=== PATIENT | male | born 1960 | race American Indian/Alaskan Native ===

== ENCOUNTER 2018-07-23 00:09 | Inpatient (IN) | payer BC ==
[2018-07-23] MEDS ORDERED: NORMODYNE IV ONE (03:20)
[2018-07-23] MEDS ORDERED: ASPIRIN PO ONE (03:20)
--- NOTE | 2018-07-23 04:03 | Emergency Department Report ---
ED Chest Pain HPI - General Chief Complaint: Chest Pain Time Seen by Provider: 07/23/18 02:53 Source: patient Mode of arrival: Ambulatory Limitations: No Limitations - History of Present Illness Initial Comments: 57-year-old male with no past medical history, has not seen a physician in a while, presents to ED with complaint of chest pain, onset last night while at rest. Patient states pain is sternal, throbbing, intermittent in nature. Reported associated diaphoresis. Denies any aggravating or alleviating factors. Denies shortness of breath, nausea, vomiting, leg pain or swelling. Patient reports tobacco use. Denies drug use. Currently chest pain free. MD Complaint: chest pain -: Last night Onset: during rest Pain Location: substernal Pain Radiation: none Severity: moderate Severity scale (0 -10): 8 Quality: other (throbbing) Consistency: intermittent Improves With: nothing Worsens With: nothing re: diaphoresis. denies: nausea, vomting, dyspnea Other Symptoms: denies: cough, fever, leg swelling - Related Data Home Medications Medication Instructions Recorded Confirmed Last Taken No Known Home Medications [No 07/23/18 07/23/18 Unknown Reported Home Medications] Allergies Allergy/AdvReac Type Severity Reaction Status Date / Time No Known Allergies Allergy Verified 07/23/18 05:59 Heart Score - HEART Score History: Moderately suspicious EKG: Non-specific Age: 45-65 Risk factors: 1-2 risk factors Troponin: > 3x normal limit HEART Score: 6 ED Review of Systems ROS: Stated complaint: Other details as noted in HPI Comment: All other systems reviewed and negative Constitutional: denies: chills, fever Respiratory: denies: cough, shortness of breath Cardiovascular: chest pain Gastrointestinal: denies: nausea, vomiting Musculoskeletal: other (denies leg pain/ swelling) ED Past Medical Hx - Past Medical History Previous Medical History?: No - Surgical History Past Surgical History?: No - Social History Smoking Status: Current Every Day Smoker Substance Use Type: Alcohol - Medications Home Medications: Home Medications Medication Instructions Recorded Confirmed Last Taken Type No Known Home Medications [No 07/23/18 07/23/18 Unknown History Reported Home Medications] ED Physical Exam - General Limitations: No Limitations General appearance: alert, in no apparent distress - Head Head exam: Present: atraumatic, normocephalic - Eye Eye exam: Present: normal appearance - ENT ENT exam: Present: mucous membranes moist - Neck Neck exam: Present: normal inspection - Respiratory Respiratory exam: Present: normal lung sounds bilaterally. Absent: respiratory distress - Cardiovascular Cardiovascular Exam: Present: regular rate, normal rhythm - GI/Abdominal GI/Abdominal exam: Present: soft. Absent: distended, tenderness - Extremities Exam Extremities exam: Absent: pedal edema, calf tenderness - Neurological Exam Neurological exam: Present: alert, oriented X3 - Psychiatric Psychiatric exam: Present: normal affect, normal mood - Skin Skin exam: Present: warm, dry, intact, normal color ED Course Vital Signs 07/23/18 07/23/18 07/23/18 02:23 03:00 03:32 Temperature 98 F Pulse Rate 67 84 88 Respiratory 15 17 Rate Blood Pressure 195/118 192/119 160/96 Blood Pressure 195/118 [Left] O2 Sat by Pulse 96 97 Oximetry 07/23/18 05:00 Temperature Pulse Rate 62 Respiratory 15 Rate Blood Pressure 162/96 Blood Pressure [Left] O2 Sat by Pulse 94 Oximetry ED Medical Decision Making - Lab Data Result diagrams: 07/23/18 05:36 07/23/18 05:36 - EKG Data -: EKG Interpreted by Tx EKG shows normal: sinus rhythm, axis, intervals, QRS complexes Rate: normal - EKG Data Interpretation: no acute changes - Radiology Data Radiology results: report reviewed, image reviewed - Medical Decision Making 57 yo M presents to ED following onset of chest pain. Initial EKG normal, repeat done one hour later showed biphasic T waves. Currently chest pain free. Troponin resulted at 0.18, so heparin drip initiated. CXR negative. SBP initially elevated into the 190s. Improved with IV labetalol. Will admit to hospitalist, Dr Man. - Differential Diagnosis ACS, hypertension, GERD Critical Care Time: Yes Critical care time in (mins) excluding proc time.: 35 Critical care attestation.: If time is entered above; I have spent that time in minutes in the direct care of this critically ill patient, excluding procedure time. Critical Care Time: 35 min ED Disposition Clinical Impression: Hypertensive urgency, NSTEMI (non-ST elevated myocardial infarction) Disposition: OP ADMIT IP TO THIS HOSP Is pt being admited?: Yes Condition: Stable Instructions: Chest Pain (ED) Referrals: JENARO SNOW MD [Primary Care Provider] - 3-5 Days Time of Disposition: 05:23
--- NOTE | 2018-07-23 04:18 | XRay Report ---
EXAM: XR CHEST 1V AP HISTORY: chest pain TECHNIQUE: AP CXR dated July 23, 2018 at 3:31 AM. COMPARISON: None available. FINDINGS: The heart size and mediastinum are within normal limits. The lung zaldivar and costophrenic angles are clear. There is no acute parenchymal infiltrate, pleural effusion, or pneumothorax seen. The visua lized bony structures are within normal limits. IMPRESSION: 1. No evidence for acute cardiopulmonary disease seen. This document is electronically signed by Naomi Choi MD., July 23 2018 04:16:48 AM ET
[2018-07-23 04:40] LABS: INR 0.98 (0.87-1.13)
[2018-07-23 04:41] LABS: Partial Thromboplastin Time 36.2 Sec. (24.2-36.6)
[2018-07-23] MEDS ORDERED: HEPARIN 10,000 UNITS/10 ML IV ONE (05:56)
[2018-07-23 06:00] LABS: Basophils % (Auto) 0.4 % (0.0-1.8); Eosinophils % (Auto) 0.3 % (0.0-4.3); Hematocrit 42.1 % (35.5-45.6); Hemoglobin 14.4 gm/dl (11.8-15.2); Lymphocytes # (Auto) 3.6 K/mm3 (1.2-5.4); Lymphocytes % (Auto) 37.1 % (13.4-35.0); Mean Corpuscular HGB Conc 34 % (32-34); Mean Corpuscular Volume 97 fl (84-94); Monocytes # (Auto) 0.7 K/mm3 (0.0-0.8); Monocytes % (Auto) 6.9 % (0.0-7.3); Platelet Count 246 K/mm3 (140-440); Red Blood Count 4.33 M/mm3 (3.65-5.03); Red Cell Distribution Width 13.2 % (13.2-15.2)
[2018-07-23] MEDS ORDERED: HEPARIN/ 0.45% NACL-25,000 UNIT/500 ML 25,000 UNIT/500 ML BAG IV SCH (06:00)
[2018-07-23 06:15] LABS: BUN/Creatinine Ratio 11; Blood Urea Nitrogen 10 mg/dL (9-20); Hemolysis Index 1
[2018-07-23 06:37] LABS: INR 0.98 (0.87-1.13)
[2018-07-23 06:38] LABS: Partial Thromboplastin Time 34.5 Sec. (24.2-36.6)
--- NOTE | 2018-07-23 06:46 | Event Note ---
Date: 07/23/18 See history and physical in the reports NSTEMI Cardiology consult
[2018-07-23] MEDS ORDERED: ZOFRAN IV PRN (06:57)
[2018-07-23] MEDS ORDERED: SODIUM CHLORIDE FLUSH SYRINGE 10 ML IV PRN (06:57)
[2018-07-23] MEDS ORDERED: NACL 0.9% 1000 ML 1,000 ML IV SCH ×2 (07:00→14:00)
[2018-07-23] MEDS ORDERED: TYLENOL PO PRN (07:00)
--- NOTE | 2018-07-23 07:20 | History and Physical Report ---
CHIEF COMPLAINT: Left-sided chest pain for 1 day. HISTORY OF PRESENT ILLNESS: A 57-year-old with no significant past medical history, comes in for left-sided chest pain at rest. Chest pain is about 6 on a scale of 1-10. Exacerbated by exertion. The pain is dull to sharp and some diaphoresis present. No palpitations. No shortness of breath. HEART score is 6. PAST MEDICAL HISTORY: None. PAST SURGICAL HISTORY: None. SOCIAL HISTORY: Smokes over a pack a day. FAMILY HISTORY: Hypertension. REVIEW OF SYSTEMS: Significant for left-sided chest pain. Otherwise, no significant complaints. A 14-point review of systems done. PHYSICAL EXAMINATION: GENERAL: Young elderly male, cooperative during examination. VITAL SIGNS: Blood pressure is 195/118, temperature is 98, pulse is 67, respiratory rate is 15. HEENT: Unremarkable. Pupils equal and reactive. NECK: Supple, no lymphadenopathy, no thyromegaly. LUNGS: Clear to auscultation and percussion. Good air entry. CARDIOVASCULAR: S1, S2 heard. No gallop, no murmur, no rub. Apical impulse in left fifth intercostal space and midclavicular line. ABDOMEN: Soft and benign. No hepatosplenomegaly. No guarding, no rigidity. Hernial orifices are normal. EXTREMITIES: Good pedal pulses. No pedal edema. CENTRAL NERVOUS SYSTEM: Alert and oriented x 4, nonfocal exam. SKIN: Normal. LABORATORY DATA: Significant for CBC is normal. Electrolytes are normal. Troponin 0.180. EKG shows normal sinus rhythm, ST depressions in V2, V3, and V4. No significant ST elevations. Heart rate of 78 per minute. ASSESSMENT AND PLAN: 1. Non-ST elevation myocardial and ST elevation myocardial infarction. The patient started on IV heparin. Cardiology consult requested. Stress test was not ordered. We will defer to Cardiology and will also discuss with Cardiology as soon as possible. 2. Hypertensive emergency. The patient initiated on losartan and Coreg. 3. Deep venous thrombosis prophylaxis. The patient is already on heparin and GI prophylaxis. JOB# [id number] [facility]/SONIA MESSINAD
[2018-07-23 07:52] LABS: Chol/HDL Ratio 2.96 %
--- NOTE | 2018-07-23 09:33 | Consultation ---
History of Present Illness Consult date: 07/23/18 Consult reason: chest pain, elevated troponin History of present illness: This is a 57 year old male who smokes tobacco but has no prior medical history and does not take any medications. He presents to the emergency department with chest pain and uncontrolled hypertension. There were no reports of unusual shortness of breath, no palpitations, no diaphoresis or no pre-syncope. Cycled troponins are trending upwards. His initial ECG is sinus rhythm with LVH. A cardiac consultation has been requested for further evaluation and management. Past History Past Medical History: No medical history Medications and Allergies Allergies Allergy/AdvReac Type Severity Reaction Status Date / Time No Known Allergies Allergy Verified 07/23/18 05:59 Home Medications Medication Instructions Recorded Confirmed Last Taken Type No Known Home Medications [No 07/23/18 07/23/18 Unknown History Reported Home Medications] Active Meds: Active Medications Acetaminophen (Tylenol) 650 mg PO Q4H PRN PRN Reason: Pain MILD(1-3)/Fever >100.5/PANTOJA Carvedilol (Coreg) 6.25 mg PO BID CHUYITA Hydromorphone HCl (Dilaudid) 0.5 mg IV Q3H PRN PRN Reason: Pain , Severe (7-10) Heparin Sodium/Sodium Chloride (Heparin/ 0.45% Nacl-25,000 Unit/500 Ml) 25,000 unit in 500 mls @ 20 mls/hr IV TITRATE CHUYITA; Protocol Last Admin: 07/23/18 06:13 Dose: 1,000 units/hr, 20 mls/hr Documented by: Sodium Chloride (Nacl 0.9% 1000 Ml) 1,000 mls @ 75 mls/hr IV DIRECT CHUYITA Losartan Potassium (Cozaar) 100 mg PO QDAY CHUYITA Ondansetron HCl (Zofran) 4 mg IV Q8H PRN PRN Reason: Nausea And Vomiting Sodium Chloride (Sodium Chloride Flush Syringe 10 Ml) 10 ml IV BID CHUYITA Sodium Chloride (Sodium Chloride Flush Syringe 10 Ml) 10 ml IV PRN PRN PRN Reason: LINE FLUSH Physical Examination Vital Signs Temp Pulse Resp BP Pulse Ox 98 F 67 16 195/118 96 07/23/18 02:23 07/23/18 02:23 07/23/18 02:23 07/23/18 02:23 06/12/19 02:23 General appearance: no acute distress HEENT: Positive: PERRL Neck: Positive: trachea midline Cardiac: Positive: Reg Rate and Rhythm Lungs: Positive: Decreased Breath Sounds Neuro: Positive: Grossly Intact Extremities: Absent: edema Results 07/23/18 05:36 07/23/18 05:36 Coagulation 07/23/18 07/23/18 Range/Units 04:12 06:05 PT 13.6 13.6 (12.2-14.9) Sec. INR 0.98 0.98 (0.87-1.13) APTT 36.2 34.5 (24.2-36.6) Sec. Lipids 07/23/18 Range/Units 04:12 Triglycerides 102 (2-149) mg/dL Cholesterol 169 (50-199) mg/dL HDL Cholesterol 57 (40-59) mg/dL Cholesterol/HDL Ratio 2.96 % CBC 07/23/18 Range/Units 05:36 WBC 9.8 (4.5-11.0) K/mm3 RBC 4.33 (3.65-5.03) M/mm3 Hgb 14.4 (11.8-15.2) gm/dl Hct 42.1 (35.5-45.6) % Plt Count 246 (140-440) K/mm3 Lymph # 3.6 (1.2-5.4) K/mm3 [place] # 0.7 (0.0-0.8) K/mm3 Eos # 0.0 (0.0-0.4) K/mm3 Baso # 0.0 (0.0-0.1) K/mm3 Comprehensive Metabolic Panel 07/23/18 Range/Units 05:36 Sodium 140 (137-145) mmol/L Potassium 4.2 (3.6-5.0) mmol/L Chloride 101.5 (98-107) mmol/L Carbon Dioxide 26 (22-30) mmol/L BUN 10 (9-20) mg/dL Creatinine 0.9 (0.8-1.5) mg/dL Glucose 120 H (75-100) mg/dL Calcium 9.0 (8.4-10.2) mg/dL Assessment and Plan NSTEMI Hypertension Tobacco abuse We will proceed with a cardiac cath for ischemic evaluation. Echocardiogram for LVEF assessment.
[2018-07-23] MEDS ORDERED: CALAN ONE ×2 (09:40→11:54)
[2018-07-23] MEDS ORDERED: XYLOCAINE 2% INFILTRATI ONE (09:40)
[2018-07-23] MEDS ORDERED: NITROGLYCERIN SYRINGE 3 ML ONE ×2 (09:40→11:54)
[2018-07-23] MEDS ORDERED: HEPARIN/NS 5000 UNIT/500ML(CATH LAB) 1,000 ML IR ONE ×2 (09:40→11:53)
[2018-07-23] MEDS ORDERED: NACL 0.9% 500 ML 500 ML ONE ×2 (09:50→11:54)
[2018-07-23] MEDS: SUBLIMAZE ONE ×3 (10:04→12:49)
[2018-07-23] MEDS: VERSED ONE ×3 (10:04→12:49)
[2018-07-23] MEDS: HEPARIN 10,000 UNITS/10 ML ONE ×3 (10:07→13:10)
[2018-07-23] MEDS ORDERED: BRILINTA ONE (10:26)
[2018-07-23] MEDS ORDERED: ALUM-MAG HYDROX-SIMETH 200-200-20MG/5ML ONE (10:26)
[2018-07-23] MEDS ORDERED: BRILINTA PO ONE (10:49)
--- NOTE | 2018-07-23 11:30 | Cardiac Catherization Report ---
INDICATION FOR PROCEDURE: Non-ST elevation myocardial infarction. ORDERING PHYSICIAN: Emiliano Weston MD PROCEDURES PERFORMED: 1. Selective left and right coronary angiography. 2. Left ventriculography. DESCRIPTION OF PROCEDURE: After obtaining the consent, the patient was draped using sterile technique. A 2% lidocaine was injected into the right wrist. A 6-Kyrgyz vascular sheath was inserted into the right radial artery. A 6-Kyrgyz JL 3.5 catheter was used to selectively engage left coronary artery. A 6-Kyrgyz JR4 catheter was used to selectively engage the right coronary artery. A 6-Kyrgyz JR4 catheter was used to hand inject the left ventriculogram. No complications occurred during the procedure. Hemostasis was achieved at the end of the procedure using manual pressure. SPECIMEN REMOVED: None. ESTIMATED BLOOD LOSS: Minimal. TOTAL SEDATION ADMINISTERED: 1 mg of IV Versed and 50 mcg of IV fentanyl. PHYSICIAN/PATIENT [id number] SEDATION START TIME: 10:04 a.m. PHYSICIAN/PATIENT [id number] SEDATION STOP TIME: 10:19 a.m. TOTAL SEDATION TIME: 14 minutes. FINDINGS: HEMODYNAMICS: Aortic pressure 127/72, LV systolic pressure 123 mmHg. LVEDP 19 mmHg. CARDIAC STRUCTURES: The left ventricle is normal in size and systolic function. The left ventricular ejection fraction is estimated at 60%. No regional wall motion abnormality detected. CORONARY ANATOMY: 1. This is a right dominant circulation. 2. The left main is angiographically normal. 3. The LAD has a focal 90% stenosis in the mid segment. 4. The left circumflex artery has mild nonobstructive coronary artery disease. 5. The right coronary artery has evidence of a tubular 80% stenosis in the mid segment. IMPRESSION: 1. Significant 2-vessel disease with a 90% mid left anterior descending occlusion as well as 90% mid right coronary artery stenosis. 2. Normal left ventricular ejection fraction. 3. Left ventricular end-diastolic pressure measured at 19 mmHg. RECOMMENDATIONS: Proceed with PCI to the mid LAD and the mid RCA. JOB# [id number] ALAINA/SONIA
[2018-07-23] MEDS ORDERED: HEPARIN 10,000 UNITS/10 ML ONE (11:53)
[2018-07-23] MEDS ORDERED: VERSED ONE (11:53)
[2018-07-23] MEDS ORDERED: SUBLIMAZE ONE (11:54)
[2018-07-23] MEDS: XYLOCAINE 2% INFILTRATI ONE ×2 (12:46→12:52)
--- NOTE | 2018-07-23 13:34 | Event Note ---
Date: 07/23/18 Successful PCI of mid LAD, no complications-see report for details. Schedule 2nd vessel PCI of mid RCA for tomorrow.
--- NOTE | 2018-07-23 13:39 | Cardiac Catherization Report ---
CORONARY ANGIOPLASTY REPORT REASON FOR PROCEDURE: The patient is a 57-year-old man who presented to the hospital with a non-ST elevation myocardial infarction, cardiac catheterization performed earlier today, demonstrated 2-vessel disease with a 90% stenosis of the mid left anterior descending artery, and second vessel, 85-90% stenosis of the mid right coronary artery. He was referred for a 2-vessel coronary intervention. Following his cardiac catheterization today, we recommended a coronary intervention to the mid LAD stenosis followed by staged second vessel right coronary intervention. PROCEDURE: The patient was prepped and draped in a sterile fashion after informed consent. The right femoral artery was entered using the Seldinger technique followed by placement of a 6-Chinese sheath. We selected a number 3.5 XB guiding catheter and advanced to the left coronary ostium. Pre-intervention angiograms were taken. A 0.014 inch [employer]ist 50 guidewire was directed into the LAD across the lesional segment. Following wire placement, predilatation angioplasty was performed using a 3.0 mm balloon catheter. Following that, a 3.5 x 18 mm Xience drug-eluting stent was deployed across the lesional segment and inflated to optimal pressures. Another, 3.5 x 8 mm Xience stent was then deployed in juxtaposition to the distal border of the previous stent, following which there was an excellent angiographic result, 0 residual stenosis, PIO 3 flow was maintained down the vessel. The patient tolerated the procedure well and there were no complications. CONCLUSION: Successful angioplasty and stenting of the mid left anterior descending artery, excellent angiographic result, following angioplasty, deployment of a 3.5 mm drug-eluting stent, and post-dilatation angioplasty. The patient will be scheduled for a staged, second vessel intervention to the right coronary artery. JOB# [id number] MARLO/NTS
[2018-07-23] MEDS ORDERED: NACL 0.9% 500 ML 500 ML IV SCH (14:00)
[2018-07-23] MEDS ORDERED: NACL 0.9% 1000 ML 1,000 ML ONE (14:42)
--- NOTE | 2018-07-23 16:24 | Event Note ---
Date: 07/23/18 Patient seen and examined Patient presented with acute chest pain and uncontrolled blood pressure and elevated troponin Cardiac cath today showed coronary artery disease status post stent PCI with stent placement Plan for PCI to the second coronary artery tomorrow , Continue to monitor at telemetry, continue current plan and as documented in H&P Continue to follow cardiology recommendation.
[2018-07-23] MEDS: COREG PO SCH ×2 (18:10→22:11)
[2018-07-23] MEDS: COZAAR PO SCH (18:10)
[2018-07-23] MEDS: SODIUM CHLORIDE FLUSH SYRINGE 10 ML IV SCH ×2 (18:11→22:13)
[2018-07-23] MEDS: BRILINTA PO SCH (22:11)
[2018-07-24] MEDS ORDERED: NACL 0.9% 500 ML 500 ML ONE (04:14)
[2018-07-24] MEDS: DILAUDID IV PRN ×2 (04:21→21:45)
[2018-07-24] MEDS: NITRO DUR TD SCH (06:00)
[2018-07-24 06:24] LABS: Basophils % (Auto) 0.4 % (0.0-1.8); Eosinophils % (Auto) 0.3 % (0.0-4.3); Hematocrit 33.9 % (35.5-45.6); Hemoglobin 11.6 gm/dl (11.8-15.2); Lymphocytes # (Auto) 2.3 K/mm3 (1.2-5.4); Lymphocytes % (Auto) 25.5 % (13.4-35.0); Mean Corpuscular HGB Conc 34 % (32-34); Mean Corpuscular Volume 97 fl (84-94); Monocytes # (Auto) 0.7 K/mm3 (0.0-0.8); Monocytes % (Auto) 7.8 % (0.0-7.3); Platelet Count 196 K/mm3 (140-440); Red Blood Count 3.49 M/mm3 (3.65-5.03); Red Cell Distribution Width 13.6 % (13.2-15.2)
[2018-07-24 06:47] LABS: Creatine Kinase MB 11.3 ng/mL (0.0-4.0)
[2018-07-24 06:52] LABS: Alanine Aminotransferase 16 units/L (7-56); Albumin 3.1 g/dL (3.9-5); BUN/Creatinine Ratio 11; Blood Urea Nitrogen 10 mg/dL (9-20); Calcium 8.5 mg/dL (8.4-10.2); Hemolysis Index 27
--- NOTE | 2018-07-24 09:27 | XRay Report ---
AP CHEST : 07/23/18 07:49 CLINICAL: Post PCI COMPARISON:07/23/18 03:31 FINDINGS: Normal heart and pulmonary vessels. The lungs are normally expanded and clear. No pneumothorax. The bones and soft tissues are unremarkable.No tubes or lines. IMPRESSION: Normal chest.
--- NOTE | 2018-07-24 11:39 | Progress Note ---
Assessment and Plan NSTEMI s/p PCI of the mid LAD. On Brilinta and aspirin. Hypertension Tobacco abuse Recommend Echocardiogram for LVEF assessment. For staged 2nd vessel PCI of the mid RCA tomorrow. Continue medical therapy for coronary artery disease. Strongly advised smoking cessation. Subjective Date of service: 07/24/18 Interval history: Patient is resting in bed comfortably. He denies chest pain. Cardiac cath today postponed due to post LHC right groin hematoma. Objective Vital Signs Temp Pulse Resp BP BP Pulse Ox 07/24/18 09:28 97.7 F 61 16 142/83 97 07/24/18 08:30 100 07/24/18 07:41 63 07/24/18 06:00 74 145/85 07/24/18 04:24 98.6 F 07/24/18 04:23 74 18 145/85 98 07/23/18 23:50 98.6 F 07/23/18 23:49 90 18 141/75 97 07/23/18 22:11 78 152/84 07/23/18 21:57 98.5 F 07/23/18 21:55 77 18 131/78 99 07/23/18 21:30 96 07/23/18 20:12 98.2 F 84 18 148/78 98 07/23/18 18:15 91 H 122/73 07/23/18 17:15 72 16 117/72 98 07/23/18 17:00 73 12 100/70 99 07/23/18 16:45 85 14 112/70 99 07/23/18 16:30 70 14 123/77 99 07/23/18 16:25 65 17 116/80 96 07/23/18 16:20 68 14 130/73 98 07/23/18 16:15 73 16 109/66 97 07/23/18 16:10 77 12 111/81 99 07/23/18 16:05 83 12 137/65 99 07/23/18 16:00 73 19 125/67 99 07/23/18 15:45 72 14 135/82 100 07/23/18 15:30 67 16 128/67 100 07/23/18 15:15 67 17 125/83 100 07/23/18 15:00 64 15 134/71 99 07/23/18 14:45 78 12 145/74 99 07/23/18 14:30 79 13 145/74 99 07/23/18 14:14 67 14 125/78 98 07/23/18 13:55 63 18 141/78 98 07/23/18 13:40 98.0 F 60 20 128/83 98 07/23/18 11:45 64 14 133/77 96 - Physical Examination General: No Apparent Distress HEENT: Positive: PERRL Neck: Positive: trachea midline Cardiac: Positive: Reg Rate and Rhythm Lungs: Positive: Decreased Breath Sounds Neuro: Positive: Grossly Intact Incision: Cardiac Cath Site (intact) Extremities: Absent: edema - Labs and Meds Cardiac Enzymes 07/24/18 Range/Units 05:39 AST 34 (5-40) units/L CK-MB (CK-2) 11.3 H (0.0-4.0) ng/mL CBC 07/24/18 Range/Units 05:39 WBC 9.0 (4.5-11.0) K/mm3 RBC 3.49 L (3.65-5.03) M/mm3 Hgb 11.6 L (11.8-15.2) gm/dl Hct 33.9 L D (35.5-45.6) % Plt Count 196 (140-440) K/mm3 Lymph # 2.3 (1.2-5.4) K/mm3 [place] # 0.7 (0.0-0.8) K/mm3 Eos # 0.0 (0.0-0.4) K/mm3 Baso # 0.0 (0.0-0.1) K/mm3 Comprehensive Metabolic Panel 07/24/18 Range/Units 05:39 Sodium 142 (137-145) mmol/L Potassium 4.2 (3.6-5.0) mmol/L Chloride 105.7 (98-107) mmol/L Carbon Dioxide 24 (22-30) mmol/L BUN 10 (9-20) mg/dL Creatinine 0.9 (0.8-1.5) mg/dL Glucose 125 H (75-100) mg/dL Calcium 8.5 (8.4-10.2) mg/dL AST 34 (5-40) units/L ALT 16 (7-56) units/L Alkaline Phosphatase 48 (35-129) units/L Total Protein 6.3 (6.3-8.2) g/dL Albumin 3.1 L (3.9-5) g/dL
[2018-07-24] MEDS: COREG PO SCH ×2 (11:42→21:44)
[2018-07-24] MEDS: SODIUM CHLORIDE FLUSH SYRINGE 10 ML IV SCH ×2 (11:42→21:46)
[2018-07-24] MEDS: COZAAR PO SCH (11:42)
[2018-07-24] MEDS: HALFPRIN EC PO SCH (11:42)
[2018-07-24] MEDS: BRILINTA PO SCH ×2 (11:42→21:45)
[2018-07-24] MEDS ORDERED: PNEUMOVAX 23 IM ONE (12:00)
[2018-07-24] MEDS ORDERED: AFLURIA QUAD 2018-2019 SYRINGE IM ONE (12:00)
--- NOTE | 2018-07-24 15:26 | Progress Note ---
Assessment and Plan NSTEMI - s/p PCI of the mid LAD. On Brilinta and aspirin. - For staged 2nd vessel PCI of the mid RCA tomorrow. - 2-D echo showed preserved. Hypertension, currently stable, continue current meds adjust as stated Tobacco abuse, counseled Right groin hematoma, clinically monitor, no active bleeding currently, follow H&H DVT prophylaxis, SCD Brief History: 57-year-old male presented with acute chest pain and uncontrolled blood pressure and elevated troponin Cardiac cath 07/23 showed coronary artery disease status post stent PCI with stent placement Plan for PCI to the second coronary artery tomorrow as he developed right groin hematoma following first cardiac cath. Continue to follow cardiology recommendation. Radiological data: Chest x-ray: No infiltrates 2-D echo showed preserved EF Hospitalist Physical exam: GENERAL: well-developed and well-nourished -N[place]alese male lying on bed appeared to be in no discomfort. HEENT: Normocephalic. Atraumatic. No conjunctival congestion or icterus. Patient has moist mucous membranes. NECK: Supple. Trachea midline. CHEST/LUNGS: Clear to auscultated bilaterally, breathing nonlabored. No wheezes crackles or rhonchi. HEART/CARDIOVASCULAR: Regular in rate and rhythm. S1 and S2 positive. ABDOMEN: Abdomen is soft, nontender. Patient has normal bowel sounds. SKIN: There is no rash. Warm and dry. NEURO: No focal motor deficit. Follows command. MUSCULOSKELETAL: No joint effusion or tenderness. EXTRIMITY: No edema, no cyanosis or clubbing. Right groin with wound dressing without any active bleeding PSYCH: Cooperative. Subjective Date of service: 07/24/18 Interval history: Patient seen and examined. Medical records and medication list reviewed. No acute event overnight noted by the RN. Patient denies any chest pain or difficulty breathing. Patient is tolerating diet. PCI postponed till tomorrow for right groin hematoma Discussed plan of care at bedside with patient. Objective - Constitutional Vitals: Vital Signs - 12hr 07/24/18 07/24/18 07/24/18 04:23 04:24 06:00 Temperature 98.6 F Pulse Rate 74 74 Respiratory 18 Rate Blood Pressure 145/85 145/85 O2 Sat by Pulse 98 Oximetry 07/24/18 07/24/18 07/24/18 07:41 08:30 09:28 Temperature 97.7 F Pulse Rate 63 61 Respiratory 16 Rate Blood Pressure 142/83 O2 Sat by Pulse 100 97 Oximetry - Labs CBC & Chem 7: 07/25/18 04:52 07/25/18 04:52 Labs: Abnormal lab results 07/23/18 07/23/18 07/23/18 Range/Units 13:10 15:11 15:16 RBC (3.65-5.03) M/mm3 Hgb (11.8-15.2) gm/dl Hct (35.5-45.6) % MCV (84-94) fl MCH (28-32) pg [place] % (Auto) (0.0-7.3) % Activated Clotting Time 274 H 180 H (74-137) Heparin Anti-Xa Level (0.3-0.7) U.I./ml Glucose (75-100) mg/dL POC Glucose 131 H (70-105) Total Creatine Kinase (55-170) units/L CK-MB (CK-2) (0.0-4.0) ng/mL CK-MB (CK-2) Rel Index (0-4) Troponin T (0.00-0.029) ng/mL Albumin (3.9-5) g/dL 07/23/18 07/23/18 07/23/18 Range/Units 15:48 18:07 18:07 RBC (3.65-5.03) M/mm3 Hgb (11.8-15.2) gm/dl Hct (35.5-45.6) % MCV (84-94) fl MCH (28-32) pg [place] % (Auto) (0.0-7.3) % Activated Clotting Time 164 H (74-137) Heparin Anti-Xa Level < 0.10 L (0.3-0.7) U.I./ml Glucose (75-100) mg/dL POC Glucose (70-105) Total Creatine Kinase (55-170) units/L CK-MB (CK-2) (0.0-4.0) ng/mL CK-MB (CK-2) Rel Index (0-4) Troponin T 0.276 H* (0.00-0.029) ng/mL Albumin (3.9-5) g/dL 06/13/19 06/13/19 Range/Units 05:39 05:39 RBC 3.49 L (3.65-5.03) M/mm3 Hgb 11.6 L (11.8-15.2) gm/dl Hct 33.9 L D (35.5-45.6) % MCV 97 H (84-94) fl MCH 33 H (28-32) pg [place] % (Auto) 7.8 H (0.0-7.3) % Activated Clotting Time (74-137) Heparin Anti-Xa Level (0.3-0.7) U.I./ml Glucose 125 H (75-100) mg/dL POC Glucose (70-105) Total Creatine Kinase 204 H (55-170) units/L CK-MB (CK-2) 11.3 H (0.0-4.0) ng/mL CK-MB (CK-2) Rel Index 5.5 H (0-4) Troponin T 0.296 H* (0.00-0.029) ng/mL Albumin 3.1 L (3.9-5) g/dL
[2018-07-25] MEDS: NITRO DUR TD SCH (05:28)
[2018-07-25 06:01] LABS: Hematocrit 32.3 % (35.5-45.6); Hemoglobin 11.2 gm/dl (11.8-15.2)
[2018-07-25 06:16] LABS: INR 1.05 (0.87-1.13)
[2018-07-25 06:28] LABS: BUN/Creatinine Ratio 13; Blood Urea Nitrogen 13 mg/dL (9-20); Hemolysis Index 37
[2018-07-25] MEDS: COZAAR PO SCH (10:42)
[2018-07-25] MEDS: COREG PO SCH ×2 (10:42→21:49)
[2018-07-25] MEDS: HALFPRIN EC PO SCH (10:42)
[2018-07-25] MEDS: BRILINTA PO SCH ×2 (10:42→21:49)
[2018-07-25] MEDS: SODIUM CHLORIDE FLUSH SYRINGE 10 ML IV SCH ×2 (10:43→21:51)
[2018-07-25] MEDS ORDERED: HEPARIN/NS 5000 UNIT/500ML(CATH LAB) 1,000 ML IR ONE (13:06)
[2018-07-25] MEDS ORDERED: NITROGLYCERIN SYRINGE 3 ML ONE (13:06)
[2018-07-25] MEDS ORDERED: XYLOCAINE 2% INFILTRATI ONE (13:06)
[2018-07-25] MEDS ORDERED: CALAN ONE (13:06)
[2018-07-25] MEDS ORDERED: SUBLIMAZE ONE (13:07)
[2018-07-25] MEDS ORDERED: VERSED ONE (13:07)
[2018-07-25] MEDS ORDERED: NACL 0.9% 500 ML 500 ML ONE (13:26)
[2018-07-25] MEDS: HEPARIN 10,000 UNITS/10 ML ONE ×2 (13:48→14:08)
--- NOTE | 2018-07-25 14:20 | Event Note ---
Date: 07/25/18 Successful 2nd vessel PCI of the mid RCA, excellent result, no complications. Patient will be observed overnight and is stable for anticipated discharge tomorrow morning. On discharge he should be on baby ASA, Brilinta, betablockers, high dose statin and oral long acting nitrates.
--- NOTE | 2018-07-25 14:41 | Cardiac Catherization Report ---
CORONARY ANGIOPLASTY REASON FOR PROCEDURE: The patient is a 57-year-old man who presented with a non-ST elevation myocardial infarction. Cardiac catheterization demonstrated severe 2-vessel disease. The patient underwent a successful angioplasty and stenting of an occlusive lesion of the mid LAD. 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 PROCEDURE: 1. Limited left coronary angiography. 2. Coronary angioplasty and stenting of the mid right coronary artery. 3. Sedation time start 1344, end 1408. The patient was prepped and draped in a sterile fashion after informed consent. Right femoral artery was entered using Seldinger technique followed by placement of a 6-Kinyarwanda sheath. We selected a #4 right German guiding catheter and advanced to the right coronary ostium. Preintervention angiograms were done. Angiography revealed a long segment of disease of the mid right coronary artery. There was within this segment, a focal, greater than 95% stenosis. We selected a #0.014 inch Program Scheduler 50 guidewire, and advanced into the vessel, successfully across the lesional segment. Following wire placement, a 2.5 mm balloon catheter was used to predilate the severely stenotic lesion. We then selected a 2.75 x 34 mm Resolute drug-eluting stent, covering the long entire lesional segment. This stent was inflated to optimal pressures. Post-dilatation, angioplasty was performed using a 3.0 mm noncompliant balloon. Following angioplasty, stent deployment and post-dilatation, there was an excellent angiographic result, 0 residual stenosis and PIO 3 flow was maintained down the vessel. The patient tolerated the procedure well and there were no complications. The catheters and the wires were removed, sheath removed. Hemostasis achieved using an Angio-Seal device. The patient was returned to the postprocedure unit in stable condition. There were no complications. CONCLUSION: Successful staged second vessel angioplasty and stenting of the right coronary artery. A greater than 95% stenosis of the mid vessel was treated successfully using a 2.75 mm drug-eluting stent, post-dilated with a 3.0 mm NC balloon. JOB# [id number] CA/NTS
[2018-07-25] MEDS ORDERED: NACL 0.9% 1000 ML 1,000 ML IV SCH (15:00)
[2018-07-25] MEDS: IMDUR PO SCH (15:00)
--- NOTE | 2018-07-25 15:45 | Progress Note ---
Assessment and Plan NSTEMI - s/p PCI of the mid LAD on 07/23. On Brilinta and aspirin. - s/p staged 2nd vessel PCI of the mid RCA today. - 2-D echo showed preserved. - Patient will be observed overnight and is stable for anticipated discharge tomorrow morning. Hypertension, currently stable, continue current meds adjust as stated Tobacco abuse, counseled Right groin hematoma, clinically monitor, no active bleeding currently, follow H&H DVT prophylaxis, SCD Brief History: 57-year-old male presented with acute chest pain and uncontrolled blood pressure and elevated troponin Cardiac cath 07/23 showed coronary artery disease status post stent PCI with stent placement on 07/23 and 07/25 Continue to follow cardiology recommendation. Radiological data: Chest x-ray: No infiltrates 2-D echo showed preserved EF Hospitalist Physical exam: GENERAL: well-developed and well-nourished -[place] male lying on bed appeared to be in no discomfort. HEENT: Normocephalic. Atraumatic. No conjunctival congestion or icterus. Patient has moist mucous membranes. NECK: Supple. Trachea midline. CHEST/LUNGS: Clear to auscultated bilaterally, breathing nonlabored. No wheezes crackles or rhonchi. HEART/CARDIOVASCULAR: Regular in rate and rhythm. S1 and S2 positive. ABDOMEN: Abdomen is soft, nontender. Patient has normal bowel sounds. SKIN: There is no rash. Warm and dry. NEURO: No focal motor deficit. Follows command. MUSCULOSKELETAL: No joint effusion or tenderness. EXTRIMITY: No edema, no cyanosis or clubbing. Right groin with wound dressing without any active bleeding PSYCH: Cooperative. Subjective Date of service: 07/25/18 Interval history: Patient seen and examined. Medical records and medication list reviewed. No acute event overnight noted by the RN. Patient denies any chest pain or difficulty breathing. Patient is tolerating diet. s/p 2nd PCI today Discussed plan of care at bedside with patient. Objective - Constitutional Vitals: Vital Signs - 12hr 07/25/18 07/25/18 07/25/18 03:58 07:00 08:45 Temperature 98.8 F 98.5 F Pulse Rate 71 87 69 Respiratory 18 18 Rate Blood Pressure 132/68 120/67 Blood Pressure [Left] O2 Sat by Pulse 99 98 Oximetry 07/25/18 07/25/18 07/25/18 10:42 12:30 13:05 Temperature 98.8 F 99.2 F Pulse Rate 87 71 Respiratory 18 13 Rate Blood Pressure 120/67 130/83 Blood Pressure 125/85 [Left] O2 Sat by Pulse 99 98 Oximetry 07/25/18 15:00 Temperature Pulse Rate 91 H Respiratory Rate Blood Pressure 134/83 Blood Pressure [Left] O2 Sat by Pulse Oximetry - Labs CBC & Chem 7: 07/25/18 04:52 07/25/18 04:52 Labs: Abnormal lab results 07/25/18 07/25/18 Range/Units 04:52 04:52 Hgb 11.2 L (11.8-15.2) gm/dl Hct 32.3 L (35.5-45.6) % Glucose 103 H (75-100) mg/dL
[2018-07-25] MEDS: DILAUDID IV PRN (21:50)
[2018-07-26 06:00] LABS: Basophils % (Auto) 0.4 % (0.0-1.8); Eosinophils # (Auto) 0.1 K/mm3 (0.0-0.4); Hematocrit 31.5 % (35.5-45.6); Lymphocytes # (Auto) 1.9 K/mm3 (1.2-5.4); Lymphocytes % (Auto) 22.1 % (13.4-35.0); Mean Corpuscular HGB Conc 35 % (32-34); Mean Corpuscular Volume 97 fl (84-94); Monocytes # (Auto) 0.7 K/mm3 (0.0-0.8); Monocytes % (Auto) 8.9 % (0.0-7.3); Platelet Count 200 K/mm3 (140-440); Red Blood Count 3.24 M/mm3 (3.65-5.03); Red Cell Distribution Width 13.3 % (13.2-15.2)
[2018-07-26 06:29] LABS: Creatine Kinase MB 4.1 ng/mL (0.0-4.0)
[2018-07-26 06:30] LABS: BUN/Creatinine Ratio 13; Blood Urea Nitrogen 13 mg/dL (9-20); Hemolysis Index 3
--- NOTE | 2018-07-26 09:25 | Progress Note ---
Assessment and Plan 1. NSTEMI. 2. Status post PCI to the mid LAD and mid RCA 3. Essential hypertension 4. Stable right groin hematoma. 5. Hyperlipidemia Plan Currently stable exam in the right groin hematoma this morning and this appears stable with palpable strong peripheral pulse no bruit. Patient to be discharged home today follow-up with Dr. Leo in the office within one week Subjective Date of service: 07/26/18 Interval history: No cardiac symptoms Objective Vital Signs Temp Pulse Resp BP BP Pulse Ox 07/26/18 09:08 98.2 F 66 16 140/75 99 07/26/18 03:29 98.3 F 70 17 104/55 99 07/25/18 23:00 98.2 F 94 H 18 101/52 96 07/25/18 21:42 18 07/25/18 19:40 98.9 F 101 H 18 126/63 97 07/25/18 19:00 74 07/25/18 16:38 98.6 F 69 18 115/66 94 07/25/18 15:00 91 H 134/83 07/25/18 13:05 99.2 F 71 13 125/85 98 07/25/18 12:30 98.8 F 87 18 130/83 99 07/25/18 10:42 120/67 - Physical Examination General: No Apparent Distress HEENT: Positive: PERRL Neck: Positive: trachea midline Cardiac: Positive: Regular Rate, S1/S2, S3, S4, PMI, Dilated. Negative: Laterally Displaced Lungs: Positive: clear to auscultation, No Wheeze, Rales, Rhonchi Neuro: Positive: Grossly Intact Abdomen: Positive: Unremarkable, Soft, Active Bowel Sounds Incision: Cardiac Cath Site (intact Hematoma stable) Extremities: Absent: edema - Labs and Meds Cardiac Enzymes 07/26/18 Range/Units 05:18 CK-MB (CK-2) 4.1 H (0.0-4.0) ng/mL CBC 07/26/18 Range/Units 05:18 WBC 8.4 (4.5-11.0) K/mm3 RBC 3.24 L (3.65-5.03) M/mm3 Hgb 11.0 L (11.8-15.2) gm/dl Hct 31.5 L (35.5-45.6) % Plt Count 200 (140-440) K/mm3 Lymph # 1.9 (1.2-5.4) K/mm3 [place] # 0.7 (0.0-0.8) K/mm3 Eos # 0.1 (0.0-0.4) K/mm3 Baso # 0.0 (0.0-0.1) K/mm3 Comprehensive Metabolic Panel 07/26/18 Range/Units 05:18 Sodium 144 (137-145) mmol/L Potassium 4.2 (3.6-5.0) mmol/L Chloride 106.3 (98-107) mmol/L Carbon Dioxide 29 (22-30) mmol/L BUN 13 (9-20) mg/dL Creatinine 1.0 (0.8-1.5) mg/dL Glucose 116 H (75-100) mg/dL Calcium 9.0 (8.4-10.2) mg/dL
[2018-07-26] MEDS: COREG PO SCH (10:19)
[2018-07-26] MEDS: HALFPRIN EC PO SCH (10:19)
[2018-07-26] MEDS: BRILINTA PO SCH (10:20)
[2018-07-26] MEDS: SODIUM CHLORIDE FLUSH SYRINGE 10 ML IV SCH (10:20)
[2018-07-26] MEDS: IMDUR PO SCH (10:20)
[2018-07-26] MEDS: COZAAR PO SCH (10:20)
[2018-07-26 12:31] VITALS: BP 119/65
--- NOTE | 2018-07-26 12:43 | Discharge Summary ---
Providers - Providers Date of Admission: 07/23/18 05:53 Date of discharge: 07/26/18 Attending physician: QUEENIE KNIGHT 07/23/18 Consult to Cardiac Rehabilitation [CONS] Routine Reason For Exam: post pci 07/23/18 06:47 Consult to Physician [CONS] Routine Comment: Consulting Provider: CARLTON RODRIGUEZ Physician Instructions: Reason For Exam: NSTEMI 07/25/18 Consult to Cardiac Rehabilitation [CONS] Routine Reason For Exam: post pci [facility] Hospital[facility] Condition: Stable Hospital course: Brief History: 57-year-old male presented with acute chest pain and uncontrolled blood pressure and elevated troponin. Cardiac cath 07/23 showed coronary artery disease status post stent PCI with stent placement on 07/23 and 07/25 Patient was clinically optimized and then discharged home in stable condition with further outpt followup. Radiological data: Chest x-ray: No infiltrates 2-D echo showed preserved EF Discharge diagnosis and management: NSTEMI type 1 - s/p PCI of the mid LAD on 07/23. On Brilinta and aspirin. - s/p staged 2nd vessel PCI of the mid RCA 07/25. - 2-D echo showed preserved. - cardiology cleared for d/c today. Hypertension, currently stable, continue current meds adjust as stated Tobacco abuse, counseled Right groin hematoma, clinically monitor, no active bleeding currently, follow H&H DVT prophylaxis, SCD Hospitalist Physical exam: GENERAL: well-developed and well-nourished -[place] male lying on bed appeared to be in no discomfort. HEENT: Normocephalic. Atraumatic. No conjunctival congestion or icterus. Patient has moist mucous membranes. NECK: Supple. Trachea midline. CHEST/LUNGS: Clear to auscultated bilaterally, breathing nonlabored. No wheezes crackles or rhonchi. HEART/CARDIOVASCULAR: Regular in rate and rhythm. S1 and S2 positive. ABDOMEN: Abdomen is soft, nontender. Patient has normal bowel sounds. SKIN: There is no rash. Warm and dry. NEURO: No focal motor deficit. Follows command. MUSCULOSKELETAL: No joint effusion or tenderness. EXTRIMITY: No edema, no cyanosis or clubbing. Right groin with wound dressing without any active bleeding PSYCH: Cooperative. Disposition: - TO HOME OR SELFCARE Time spent for discharge: 34 minutes Core Measure Documentation - Palliative Care Palliative Care/ Comfort Measures: Not Applicable - Core Measures Any of the following diagnoses?: none Exam - Constitutional Vitals: Temp Pulse Resp BP Pulse Ox 98.0 F 95 H 16 119/65 97 07/26/18 12:28 07/26/18 12:28 07/26/18 12:28 07/26/18 12:28 07/26/18 12:28 Plan Activity: advance as tolerated Weight Bearing Status: Non-Weight Bearing Diet: low fat, low salt Wound: keep clean and dry, change dressing Follow up with: KAVIN ASHMIAMI MD WALLY [Primary Care Provider] - 3-5 Days CARLTON RODRIGUEZ MD [Staff Physician] - 7 Days Forms: [facility] PCI D/C Instructions, Discharge Signature Page Prescriptions: AtorvaSTATin [Lipitor] 80 mg PO QHS #30 tablet Aspirin EC 81 mg PO QDAY #30 tablet Ticagrelor [Brilinta] 90 mg PO BID #60 tablet Carvedilol [Coreg] 6.25 mg PO BID #60 tablet Losartan [Cozaar] 100 mg PO QDAY #30 tablet ISOSORBIDE MONOnitrate [Imdur ER] 30 mg PO QDAY #30 tablet
--- NOTE | 2018-07-26 15:20 | XRay Report ---
PROCEDURE: XR CHEST 1V AP TECHNIQUE: Chest, portable upright HISTORY: post pci COMPARISON: 07/23/2018 FINDINGS: The heart size is normal. There is no pulmonary vascular congestion seen. Mediastinal contours are unchanged. Lungs are clear. There is no pleural effusion seen. There is no pneumothorax seen. IMPRESSION: No acute abnormality identified. This document is electronically signed by Yeimi Bonner MD., July 26 2018 03:18:23 PM ET
== END 2018-07-26 14:25 | disposition home or self-care (01) | DRG 247 ==
LOC: ED 00:09 → 4A 05:53
PROVIDERS: ADMIT Internal Medicine; ATTEND Internal Medicine
PROC: 027035Z Dilation of Coronary Artery, One Artery with Two Drug-eluting Intraluminal Devices, Percutaneous Approach (ICD-10-PCS; principal; 2018-07-23)
PROC: 4A023N7 Measurement of Cardiac Sampling and Pressure, Left Heart, Percutaneous Approach (ICD-10-PCS; 2018-07-23)
PROC: B2111ZZ Fluoroscopy of Multiple Coronary Arteries using Low Osmolar Contrast (ICD-10-PCS; 2018-07-23)
PROC: B2151ZZ Fluoroscopy of Left Heart using Low Osmolar Contrast (ICD-10-PCS; 2018-07-23)
PROC: 3E0234Z Introduction of Serum, Toxoid and Vaccine into Muscle, Percutaneous Approach (ICD-10-PCS; 2018-07-24)
PROC: 027034Z Dilation of Coronary Artery, One Artery with Drug-eluting Intraluminal Device, Percutaneous Approach (ICD-10-PCS; 2018-07-25)
PROC: 4A023N7 Measurement of Cardiac Sampling and Pressure, Left Heart, Percutaneous Approach (ICD-10-PCS; 2018-07-25)
PROC: B2111ZZ Fluoroscopy of Multiple Coronary Arteries using Low Osmolar Contrast (ICD-10-PCS; 2018-07-25)
DX: I21.4 Non-ST elevation (NSTEMI) myocardial infarction (principal); I16.1 Hypertensive emergency; E78.5 Hyperlipidemia, unspecified; I10 Essential (primary) hypertension; I25.10 Atherosclerotic heart disease of native coronary artery without angina pectoris; I16.0 Hypertensive urgency; F17.210 Nicotine dependence, cigarettes, uncomplicated; Z23 Encounter for immunization; Z71.6 Tobacco abuse counseling
CPT/HCPCS: 36415; 71045; 80048; 80053; 80061; 82550; 82553; 82962; 83036; 84484; 85014; 85018; 85025; 85049; 85347; 85520; 85610; 85730; 90686; 90732; 92928; 93005; 93010; 93306; 93458; 96374; 96375; 99291; 99406; G0378; A9270-GY; C1725; C1760; C1769; C1874; C1887; C1894; C9600; J1170; J1644; J2250; J2405; J3010; J7030; J7040; Q9967

== ENCOUNTER 2020-06-10 19:08 | Emergency (ER) | payer SELFPAY ==
[2020-06-10 21:57] VITALS: BP 145/72
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
--- NOTE | 2020-06-10 22:52 | XRay Report ---
LUMBAR SPINE HISTORY: Low back pain COMPARISON: None. TECHNIQUE: 3 view(s) of the lumbar spine obtained. FINDINGS: Vertebrae: Normal alignment. No acute displaced fracture identified. Vertebral body heights are maint ained. There appears to be subluxation of the coccyx, though patient reportedly had a remote injury t o this area. Disc Spaces:No significant abnormality. Facet Joints:Moderate facet hypertrophy in the lower lumbar spine. Additional findings: None. IMPRESSION: 1. No acute radiographic abnormality of the lumbar spine. Signer Name: Lyssa Cook MD Signed: 06/10/2020 10:47 PM Workstation Name: [id number]
== END 2020-06-10 23:30 | disposition home or self-care (01) ==
LOC: ED 19:08
DX: S39.012A Strain of muscle, fascia and tendon of lower back, initial encounter (principal); I10 Essential (primary) hypertension; F17.200 Nicotine dependence, unspecified, uncomplicated; Z79.899 Other long term (current) drug therapy; V49.49XA Driver injured in collision with other motor vehicles in traffic accident, initial encounter; Y92.410 Unspecified street and highway as the place of occurrence of the external cause; Y93.89 Activity, other specified; Y99.8 Other external cause status
CPT/HCPCS: 72100